=== PATIENT | male | born 1960 | race Caucasian/White ===

== ENCOUNTER 2022-09-29 11:04 | Emergency (ER) | payer OTHER, SELFPAY ==
[2022-09-29 11:23] VITALS: BP 144/86; PULSE 66; RESP 16; TEMP 36.4; O2SAT 99
--- NOTE | 2022-09-29 12:01 | ED.URI ---
HPI - URI/Sore Throat General Chief Complaint: Upper Respiratory Infection Stated Complaint: stuffy nose 2 mos Time Seen by Provider: 09/29/22 12:01 Source: patient and RN notes reviewed Mode of arrival: ambulatory Limitations: no limitations History of Present Illness HPI Narrative: Surgery 2-year-old male presents for complaint of sinus pressure and congestion for over 2 months. He states he has been using Zyrtec, nasal spray with only temporary relief. He states he has had similar symptoms last year, was treated with a steroid shot and antibiotics. Denies cough, shortness of breath, wheezing, nausea, vomiting, diarrhea, fevers or chills. [facility] and is unable to be seen by PCP at this time. MD elicited complaint: cough Related Data Home Medications Medication Instructions Recorded Confirmed amlodipine 10 mg tablet 10 mg DAILY 09/29/22 09/29/22 atorvastatin 80 mg tablet 40 mg DAILY 09/29/22 09/29/22 lisinopril 20 1 tablet BID 09/29/22 09/29/22 mg-hydrochlorothiazide 12.5 mg tablet metformin 500 mg tablet,extended 500 mg PO BID 09/29/22 09/29/22 release 24 hr omeprazole 20 mg tablet,delayed 20 mg PO DAILY 09/29/22 09/29/22 release Allergies Allergy/AdvReac Type Severity Reaction Status Date / Time No Known Allergies Allergy Verified 09/29/22 11:28 Review of Systems Review of Systems: CONSTITUTIONAL: Denies malaise, chills, sweats, fever EYES: Denies visual changes, redness, or discharge ENT: Reports rhinorrhea, congestion, sinus pain, denies otalgia, sore throat CARDIOVASCULAR: Denies chest pain, palpitations, edema RESPIRATORY: Denies dyspnea GASTROINTESTINAL: Denies abdominal pain, nausea, vomiting, diarrhea SKIN: Denies rash or itching MUSCULOSKELETAL: Denies myalgia Exam Narrative: GENERAL: Ill-appearing, nontoxic EYES: PERRLA, conjunctivae clear ENT: Mucous membranes moist. TMs pearly talbot with dull light reflex bilaterally; no tragal tenderness. Oropharynx erythematous without lesions or exudate, no drooling, no hoarseness, no trismus, uvula midline. CHEST: Clear to auscultation, breath sounds equal. No wheezing, rhonchi, rales, or stridor. No respiratory distress, speaks in full sentences. HEART: Regular rate and rhythm. No murmur heard. SKIN: Warm, dry, no rash. NEURO: Alert and oriented x3. PSYCH: Normal mood and affect Course Course Emergency Course: Patient is aware of diagnosis, understands and agrees to treatment plan. Anticipatory guidance given. Patient agrees to follow-up as directed and is aware of reasons to seek care at the emergency department. Portions of this record may have been created with voice recognition software Level of Care: Express Care Visit Vital Signs Vital signs: Vital Signs Temperature 97.6 F 09/29/22 11:23 Pulse Rate 66 09/29/22 11:23 Respiratory Rate 16 09/29/22 11:23 Blood Pressure 144/86 H 09/29/22 11:23 Pulse Oximetry 99 09/29/22 11:23 Oxygen Delivery Room Air 09/29/22 11:23 Temperature 97.6 F 09/29/22 11:23 Pulse Rate 66 09/29/22 11:23 Respiratory Rate 16 09/29/22 11:23 Blood Pressure 144/86 H 09/29/22 11:23 Pulse Oximetry 99 09/29/22 11:23 Oxygen Delivery Room Air 09/29/22 11:23 reviewed MDM - URI/Sore Throat MDM Narrative Medical decision making narrative: Advised supportive measures and signs/symptoms to go to the ER. Discussed indication for IM steroid or abx. Will give PO rx. v/u/ Pt is appropriate for outpt treatment and f/u. Differential Diagnosis Differential diagnosis: Likely upper respiratory infection, sinusitis and viral infection Discharge Plan Discharge Clinical Impression: Sinusitis Patient Disposition: Home, Self-Care Condition: Stable Instructions: Antibiotic Form, Rhinosinusitis (ED) Additional Instructions: Recommend Continue Flonase spray and Zyrtec (or Claritin/Miracle) Take medication as directed. Tylenol 1000mg every 8 hours a
== END 2022-09-29 12:16 | disposition home or self-care (01) ==
PROVIDERS: Emergency Provider Nurse Practitioner Family
DX: J32.9 Chronic sinusitis, unspecified (principal)
CPT/HCPCS: 99203; G0463